=== PATIENT | male | born 1985 | race Caucasian/White ===

== ENCOUNTER → 2017-06-24 | Outpatient (CLI) | payer OTHER ==
[2017-06-24 10:22] LABS: HEMATOCRIT 45.8 % (37.9-51.0); HEMOGLOBIN 16.1 g/dL (13.5-17.0); HGB HCT DIFFERENCE 2.5; MEAN CORPUSCULAR HEMOGLOBIN 30.4 pg (27.0-33.4); MEAN CORPUSCULAR HGB CONC 35.2 g/dL (32.0-36.0); MEAN CORPUSCULAR VOLUME 86 fl (80-97); RED BLOOD COUNT 5.31 10^6/uL (4.35-5.55); RED CELL DISTRIBUTION WIDTH 12.1 % (11.5-14.0); WHITE BLOOD COUNT 5.2 10^3/uL (4.0-10.5)
[2017-06-24 10:51] LABS: IRON 68.8 ug/dL (49-181)
[2017-06-24 11:06] LABS: FREE T3 4.35 pg/mL (2.77-5.27)
[2017-06-24 11:20] LABS: THYROID STIMULATING HORMONE 0.78 uIU/mL (0.47-4.68)
[2017-06-25 06:38] LABS: LUTEINIZING HORMONE 6.8 mIU/mL (1.7-8.6)
[2017-06-25 09:03] LABS: FOLLICLE STIMULATING HORMONE 3.4 mIU/mL (1.5-12.4)
== END ==
LOC: LAB 10:04
PROVIDERS: ATTEND Specialist
DX: G47.10 Hypersomnia, unspecified (principal); E13.9 Other specified diabetes mellitus without complications; F42.9 Obsessive-compulsive disorder, unspecified
CPT/HCPCS: 36415; 82306; 82607; 83001; 83002; 83540; 84403; 84439; 84443; 84481; 85027

== ENCOUNTER → 2018-10-16 | Outpatient (CLI) | payer OTHER ==
--- NOTE | 2018-10-16 15:01 | RADIOLOGY REPORT (SQ) ---
EXAM DESCRIPTION: MRI RT UPPER JOINT WITHOUT COMPLETED DATE/TIME: 10/16/2018 1:27 pm REASON FOR STUDY: RIGHT SHOULDER PAIN M25.511 PAIN IN RIGHT SHOULDER COMPARISON: None. TECHNIQUE: Right shoulder images acquired and stored on PACS. Multiplanar imaging to include fat sen sitive sequences such as T1, water sensitive sequences such as FST2/STIR, cartilage sensitive sequenc es such as FSPD/gradient-echo sequences. LIMITATIONS: None. FINDINGS: BONE MARROW AND CORTEX: Marrow edema in the distal clavicle. No aggressive bone resorptio n. Fairly mild AC DJD. No subacromial compromise. JOINT OR BURSAL EFFUSION: No significant joint or bursal fluid. No suggestion of loose bodies. GLENO-HUMERAL ARTICULATION: Normal articulation. No subluxation. No cystic change. No osteophytes or cartilage loss. ACROMION AND AC JOINT: As above. ROTATOR CUFF AND INTERVAL: No significant tear. No cuff muscle atrophy. LABRUM AND BICEPS LABRAL COMPLEX: Minimal fraying in the biceps anchor may be present. No high-gra de slap lesion or biceps disease detected. REMAINDER OF LABRUM AND IGHL : Generally intact. PERIARTICULAR AND ADJACENT SOFT TISSUES: No masses or abnormal nodes. OTHER: No other significant finding. IMPRESSION: 1. AC arthropathy with edema in the distal clavicle. No aggressive bone erosion or resorption curren tly identified. 2. No significant cuff disease. 3. Suspicious for mild low grade fraying in the biceps anchor. Biceps tendon intact. TECHNICAL DOCUMENTATION: JOB ID: [id number] [employer]- All Rights Reserved Reading location - IP/workstation name: [email or web address]
== END ==
LOC: RAD 12:18
PROVIDERS: ATTEND Nurse Practitioner Family
DX: M25.511 Pain in right shoulder (principal)